=== PATIENT | male | born 1975 | race American Indian/Alaskan Native ===

== ENCOUNTER 2017-11-15 13:36 | Outpatient (CLI) | payer BC ==
--- NOTE | 2017-11-15 22:58 | Magnetic Resonance Report ---
FINAL REPORT PROCEDURE: MR LE JOINT RT WO CON TECHNIQUE: Magnetic resonance imaging of the RIGHT foot was performed using standard pulse sequences. HISTORY: PAIN IN RIGHT FOOT COMPARISON: No prior studies are available for comparison. FINDINGS: There is a complete tear of the Achilles tendon, 5 centimeters proximal to the distal attachment. The tendon is retracted proximally by approximately 5 centimeters as well. There is surrounding soft tissue edema. No bone marrow edema is seen to suggest fracture. The medial and lateral ankle flexor tendons appear intact. Extensor tendons appear intact. Anterior talofibular ligament is not well-visualized and may be chronically torn. Other lateral ligaments appear intact. Deltoid ligament fibers appear grossly intact. IMPRESSION: Complete tear of the Achilles tendon. 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
== END 2017-11-15 13:37 | disposition home or self-care (01) ==
LOC: MRI 13:36
DX: S86.011A Strain of right Achilles tendon, initial encounter (principal); X58.XXXA Exposure to other specified factors, initial encounter; Y93.89 Activity, other specified; Y92.89 Other specified places as the place of occurrence of the external cause; Y99.8 Other external cause status
CPT/HCPCS: 73721